=== PATIENT | female | born 1950 | race American Indian/Alaskan Native ===

== ENCOUNTER 2017-04-28 10:42 | Outpatient (CLI) | payer MEDICARE ==
--- NOTE | 2017-04-28 13:56 | Mammography Report ---
BILATERAL DIGITAL SCREENING MAMMOGRAM with CAD: 04/28/17 10:42:00 CLINICAL: Routine screening. COMPARISON:None. A 2016 [facility] mammogram is not available. FINDINGS: The breasts are almost entirely fatty. No mass, architectural distortion or suspicious calcifications. IMPRESSION: No mammographic evidence of malignancy. BI-RADS CATEGORY: 1 - - Negative RECOMMENDATION: Routine mammographic screening in one year. COMMENT: Patient follow-up letters are generated by our [employer] application.
== END 2017-04-28 10:43 | disposition home or self-care (01) ==
LOC: SPVWC 10:42
DX: Z12.31 Encounter for screening mammogram for malignant neoplasm of breast (principal)
CPT/HCPCS: 77067; G0202

== ENCOUNTER 2017-07-30 08:31 | Outpatient (CLI) | payer MEDICARE ==
--- NOTE | 2017-07-30 10:54 | Mammography Report ---
BONE DEXA:07/30/17 08:31:00 CLINICAL: Postmenopausal. No comparison. TECHNIQUE: Two site bone DEXA performed on an Hologic scanner. FINDINGS: The average BMD of the lumbar spine L1-L4 is 1.126g/cm squared with a T-score of -0.2 and a Z-score of +1.8. Mild dextroscoliosis. The average BMD of the left hip is 1.132g/cm squared with a T-score of +0.6 and a Z-score of +1.6. IMPRESSION: WHO classification: Normal with average fracture risk based on both spine and left hip measurements. RECOMMENDATION: Clinical correlation and routine screening. DEFINITIONS: BMD = Bone Mineral Density T-score = BMD related to mean peak bone mass of young adult (mean expressed in Standard Deviation) Z-score = Age matched BMD expressed in SD World Health Organization (WHO) Diagnostic Criteria Normal T-score > -1 SD Osteopenia T-score between -1 and -2.4 SD Osteoporosis T-score -2.5 SD or below NOTE: BMD is not the only risk factor for fracture. One should also consider factors such as the patient's age, risk of falling, previous osteoporotic fracture, family history of osteoporotic fractures, current smoker, and low body weight. Z-scores are not calculated if >80 years of age.
== END 2017-07-30 08:32 | disposition home or self-care (01) ==
LOC: SPVWC 08:31
DX: M81.0 Age-related osteoporosis without current pathological fracture (principal); M41.86 Other forms of scoliosis, lumbar region; Z78.0 Asymptomatic menopausal state
CPT/HCPCS: 77080

== ENCOUNTER 2018-06-25 08:45 | Outpatient (CLI) | payer MEDICARE ==
--- NOTE | 2018-06-25 15:42 | Mammography Report ---
BILATERAL DIGITAL SCREENING MAMMOGRAM with CAD: 06/25/18 08:45:00 CLINICAL: Routine screening. COMPARISON:04/28/17 FINDINGS: The breasts are almost entirely fatty. No mass, architectural distortion or suspicious calcifications. IMPRESSION: No mammographic evidence of malignancy. BI-RADS CATEGORY: 1 - - Negative RECOMMENDATION: Routine mammographic screening in one year. COMMENT: Patient follow-up letters are generated by our [employer] application.
== END 2018-06-25 08:46 | disposition home or self-care (01) ==
LOC: SPVWC 08:45
DX: Z12.31 Encounter for screening mammogram for malignant neoplasm of breast (principal)
CPT/HCPCS: 77067

== ENCOUNTER 2018-06-29 12:36 | Outpatient (CLI) | payer MEDICARE ==
--- NOTE | 2018-06-29 14:23 | XRay Report ---
XRAY RIGHT HIP TWO VIEWS: 06/29/18 12:36:00 CLINICAL: Right hip pain. FINDINGS: No fracture or dislocation.Moderately severe osteoarthritis of the right hip with narrowing of the superolateral joint space, superior acetabular eburnation, superior and inferior osteophytes and a large superior acetabular geode. Moderate osteoarthritis of the left hip. Bilateral SI joint sclerosis, right greater than left. No erosions. Large enthesophytes of the iliac wings and at the trochanters. Lower lumbar degenerative disc disease with large osteophytes. Normal soft tissues. IMPRESSION: Moderate osteoarthritis of the hips, with worse on the right than the left. Bilateral sacroiliitis, right worse than left and diffuse enthesopathy.
== END 2018-06-29 12:37 | disposition home or self-care (01) ==
LOC: SPVIMAG 12:36
DX: M16.11 Unilateral primary osteoarthritis, right hip (principal); M46.1 Sacroiliitis, not elsewhere classified; M77.8 Other enthesopathies, not elsewhere classified

== ENCOUNTER 2019-04-22 09:20 | Outpatient (CLI) | payer MEDICARE ==
--- NOTE | 2019-04-22 20:08 | Vascular Lab Report ---
PROCEDURE: VL VENOUS DUPLEX LE RT TECHNIQUE: Duplex Doppler sonography of the right lower extremity. Priest scale imaging with and witho ut compression, spectral waveform analysis with and without augmentation, and color flow Doppler were employed. HISTORY: EDEMA COMPARISONS: None FINDINGS: Deep Venous Thrombus: None Soft tissue abnormality: None IMPRESSION: No evidence of deep venous thrombosis This document is electronically signed by Conner Ortiz MD., Apr 22 2019 08:06:48 PM ET
== END 2019-04-22 09:21 | disposition home or self-care (01) ==
LOC: VAS 09:20
DX: R60.0 Localized edema (principal)

== ENCOUNTER 2019-06-27 09:55 | Outpatient (CLI) | payer MEDICARE ==
--- NOTE | 2019-06-27 13:53 | Mammography Report ---
BILATERAL DIGITAL SCREENING MAMMOGRAM WITH CAD INDICATION: Routine screening mammography. TECHNIQUE: Digital bilateral 2D mammography was obtained in the craniocaudal and mediolateral obliq ue projections. This examination was interpreted with the benefit of Computer-Aided Detection analysi s. COMPARISON: 06/25/2018 FINDINGS: Breast Density: The breasts are almost entirely fatty. No mass, architectural distortion or suspicious calcifications. IMPRESSION:No mammographic evidence of malignancy. BI-RADS Category 1: Negative. No mammographic evidence of malignancy. Recommend routine screening m ammography in one year. A "normal" or negative report should not discourage follow up or biopsy of a clinically significant f inding. A written summary of these findings will be mailed to the patient. The patient will be entered into a mammography reporting system which will generate a reminder letter for the patient's next appointmen t at the appropriate interval. The [employer] recommends yearly mammograms starting at age 40 and continuing as l latanya as a woman is in good health. Breast MRI is recommended for women with an approximate 20-25% or greater lifetime risk of breast cancer, including women with a strong family history of breast or ova sadaf cancer or who have been treated for Hodgkin's disease. Signer Name: Dez Bennett MD Signed: 06/27/2019 1:48 PM Workstation Name: [id number]
== END 2019-06-27 09:56 | disposition home or self-care (01) ==
LOC: SPVWC 09:55
PROVIDERS: ATTEND Family Medicine
DX: Z12.31 Encounter for screening mammogram for malignant neoplasm of breast (principal)
CPT/HCPCS: 77067

== ENCOUNTER 2020-06-28 09:00 | Outpatient (CLI) | payer MEDICARE ==
--- NOTE | 2020-06-28 10:02 | Mammography Report ---
DIGITAL SCREENING MAMMOGRAM WITH CAD, 06/28/2020 INDICATION: Routine screening mammography. SCREENING MAMMOGRAM TECHNIQUE: Digital bilateral 2D mammography was obtained in the craniocaudal and mediolateral obliq ue projections. This examination was interpreted with the benefit of Computer-Aided Detection analysi s. COMPARISON: 06/27/2019 FINDINGS: Breast Density: The breasts are almost entirely fatty. There is no evidence of dominant mass, suspicious calcifications or architectural distortion in eithe r breast. IMPRESSION: Follow up recommendation: Routine yearly BI-RADS Category 1: Negative. A "normal" or negative report should not discourage follow up or biopsy of a clinically significant f inding. A written summary of these findings will be mailed to the patient. The patient will be entered into a mammography reporting system which will generate a reminder letter for the patient's next appointmen t at the appropriate interval. The [employer] recommends yearly mammograms starting at age 40 and continuing as l latanya as a woman is in good health. Breast MRI is recommended for women with an approximate 20-25% or greater lifetime risk of breast cancer, including women with a strong family history of breast or ova sadaf cancer or who have been treated for Hodgkin's disease. Signer Name: Davy Young MD Signed: 06/28/2020 9:58 AM Workstation Name: [id number]
== END 2020-06-28 09:01 | disposition home or self-care (01) ==
LOC: SPVWC 09:00
PROVIDERS: ATTEND Family Medicine
DX: Z12.31 Encounter for screening mammogram for malignant neoplasm of breast (principal); N64.89 Other specified disorders of breast
CPT/HCPCS: 77067

== ENCOUNTER 2021-08-28 13:08 | Outpatient (CLI) | payer MEDICARE ==
--- NOTE | 2021-08-28 15:15 | Mammography Report ---
DIGITAL SCREENING MAMMOGRAM WITH CAD, 08/28/2021 CLINICAL INFORMATION / INDICATION: Routine screening mammography. SCREENING MAMMO Z12.31 TECHNIQUE: Digital bilateral 2D mammography was obtained in the craniocaudal and mediolateral obliqu e projections. This examination was interpreted with the benefit of Computer-Aided Detection analysis . COMPARISON: 04/28/2017 through 06/28/2020. FINDINGS: Breast Density: The breasts are almost entirely fatty. No dominant mass, suspicious calcifications, or architectural distortion in either breast. IMPRESSION: No mammographic evidence of malignancy. Follow up recommendation: Routine yearly BI-RADS Category 1: Negative. A "normal" or negative report should not discourage follow up or biopsy of a clinically significant f inding. A written summary of these findings will be mailed to the patient. The patient will be entered into a mammography reporting system which will generate a reminder letter for the patient's next appointmen t at the appropriate interval. The [employer] recommends yearly mammograms starting at age 40 and continuing as l latanya as a woman is in good health. Breast MRI is recommended for women with an approximate 20-25% or greater lifetime risk of breast cancer, including women with a strong family history of breast or ova sadaf cancer or who have been treated for Hodgkin's disease. Signer Name: Rajiv Aguilar MD Signed: 08/28/2021 3:11 PM Workstation Name: [id number]
== END 2021-08-28 13:09 | disposition home or self-care (01) ==
LOC: SPVWC 13:08
DX: Z12.31 Encounter for screening mammogram for malignant neoplasm of breast (principal)
CPT/HCPCS: 77067